=== PATIENT | male | born 1955 | race Hispanic/Latino ===

== ENCOUNTER → 2021-09-27 | Outpatient (CLI) | payer MEDICARE | END | disposition home or self-care (01) | LOC: RAH 13:30 | PROVIDERS: ATTEND Orthopaedic Surgery | DX: M17.11 Unilateral primary osteoarthritis, right knee (principal) | CPT/HCPCS: 73700 ==

== ENCOUNTER 2021-10-01 06:56 | Observation (INO) | payer MEDICARE ==
[2021-09-27 15:05] LABS: BASOPHILS % (AUTO) 0.7 % (0.0-5.0); EOSINOPHILS % (AUTO) 0.7 % (0.0-8.0); HEMATOCRIT 44.6 % (42-54); LYMPHOCYTES % (AUTO) 34.2 % (21.0-51.0); MEAN CORPUSCULAR HEMOGLOBIN 30.2 pg (27.0-33.0); MEAN CORPUSCULAR HGB CONC 33.4 g/dL (32.0-36.0); MEAN CORPUSCULAR VOLUME 90.5 fL (79-99); MONOCYTES % (AUTO) 9.3 % (3.0-13.0); NEUTROPHILS % (AUTO) 54.8 % (40.0-77.0); PLATELET COUNT (AUTO) 223 K/uL (130-400); RED BLOOD CELL COUNT(AUTO) 4.93 MIL/uL (4.50-6.20); RED CELL DISTRIBUTION WIDTH 13.7 % (11.0-15.5); WHITE BLOOD COUNT (AUTO) 9.6 K/uL (4.8-10.8)
[2021-09-27 15:11] LABS: POTASSIUM 3.6 mmol/L (3.5-5.1)
[2021-09-27 15:17] LABS: PROTHROMBIN TIME 10.9 SEC (9.6-11.6)
[2021-09-27 15:18] LABS: PARTIAL THROMBOPLASTIN TIME 28.3 SEC (26.3-35.5)
[2021-09-30 09:50] VITALS: BP 172/72
[2021-09-30] MEDS: CEFAZOLIN SODIUM 2 GM VIAL IV SCH (11:00)
[~2021-10-01] VITALS: Ht 177.8 cm; Wt 90.4 kg
[2021-10-01] VITALS (24 sets, daily range): BP systolic 127–160; BP diastolic 61–85
[~2021-10-01 06:56] MED LIST: AEC81 PO; AMLO-257 PO; CELE-84 PO; CLON0.5T4 PO; DULO30CA52 PO; GABA300C PO; HYDR25TA PO; METO-391 PO; SERT-439 PO; SIMV-46 PO; TAMS-1 PO; TRAM50TA4 PO; ZOLP5TAB8 PO
[2021-10-01] MEDS ORDERED: CEFAZOLIN SODIUM 1 GM VIAL ONE (07:13)
[2021-10-01] MEDS: LACTATED RINGERS 1000ML 1,000 ML IV SCH ×3 (07:25→13:46)
[2021-10-01] MEDS ORDERED: PROPOFOL 10 MG/ML 20ML VIAL IV ONE (07:49)
[2021-10-01] MEDS ORDERED: ONDANSETRON 4MG INJ ONE (07:49)
[2021-10-01] MEDS ORDERED: ROCURONIUM 10MG/1ML SYR 10 MG/ML ML ONE (07:50)
[2021-10-01] MEDS ORDERED: MIDAZOLAM HCL 1 MG/ML 2ML VIAL ONE (07:50)
[2021-10-01] MEDS ORDERED: FENTANYL CITRATE PF 50 MCG/1 ML 2ML VIAL ONE (07:52)
[2021-10-01] MEDS ORDERED: TRANEXAMIC ACID 1000MG/10ML ONE (08:52)
[2021-10-01] MEDS: CEFAZOLIN SODIUM 2 GM VIAL IV SCH ×2 (10:43→11:00)
[2021-10-01] MEDS ORDERED: EPHEDRINE SULFATE 50 MG/ML AMPULE ONE (10:54)
[2021-10-01] MEDS ORDERED: HYDROCODONE/ACETAMINOPHEN 10/325 MG TAB PO PRN (11:00)
[2021-10-01] MEDS ORDERED: MORPHINE 4 MG SYG IVP PRN (11:00)
[2021-10-01] MEDS: ACETAMINOPHEN 500 MG TABLET PO SCH ×2 (11:00→19:24)
[2021-10-01] MEDS: 0.9%NACL 1000ML 1,000 ML IV SCH ×2 (11:00→21:00)
[2021-10-01] MEDS ORDERED: ONDANSETRON 4MG INJ IVP PRN (11:00)
[2021-10-01] MEDS ORDERED: HYDROCODONE/ACETAMINOPHEN 5/325 MG TAB PO PRN (11:00)
[2021-10-01] MEDS ORDERED: DEXAMETHASONE SOD PHOSPHATE 10MG/ML 1ML VIAL ONE (11:00)
[2021-10-01] MEDS: TRAMADOL HCL 50 MG TABLET PO SCH ×3 (12:00→23:48)
[2021-10-01] MEDS: CEFAZOLIN SODIUM 1 GM VIAL IVP SCH ×2 (19:23→23:46)
[2021-10-01] MEDS: ASPIRIN 81 MG EC TAB PO SCH (20:30)
[2021-10-01] MEDS: FAMOTIDINE 20MG TAB PO SCH (20:30)
[2021-10-01] MEDS ORDERED: GABAPENTIN 300 MG CAPSULE PO SCH (21:00)
[2021-10-01] MEDS ORDERED: CLONAZEPAM 0.5 MG TABLET PO SCH (21:00)
[2021-10-01] MEDS ORDERED: ZOLPIDEM TARTRATE 5 MG TAB PO SCH (21:00)
[2021-10-02] VITALS: BP 143/72
[2021-10-02] MEDS: ACETAMINOPHEN 500 MG TABLET PO SCH ×2 (03:00→11:27)
[2021-10-02 04:00] VITALS: BP 117/56
[2021-10-02 04:33] LABS: HEMATOCRIT 39.2 % (42-54); MEAN CORPUSCULAR HEMOGLOBIN 30.6 pg (27.0-33.0); MEAN CORPUSCULAR HGB CONC 32.9 g/dL (32.0-36.0); MEAN CORPUSCULAR VOLUME 93.1 fL (79-99); RED BLOOD CELL COUNT(AUTO) 4.21 MIL/uL (4.50-6.20); RED CELL DISTRIBUTION WIDTH 13.8 % (11.0-15.5)
[2021-10-02 04:40] LABS: CREATININE 1.1 mg/dL (0.5-1.5); POTASSIUM 4.2 mmol/L (3.5-5.1)
[2021-10-02] MEDS: TRAMADOL HCL 50 MG TABLET PO SCH ×2 (05:24→12:46)
[2021-10-02] MEDS: 0.9%NACL 1000ML 1,000 ML IV SCH (06:35)
[2021-10-02 08:08] VITALS: BP 130/75
[2021-10-02] MEDS: LACTATED RINGERS 1000ML 1,000 ML IV SCH (08:26)
[2021-10-02] MEDS ORDERED: CELECOXIB 200 MG CAP PO SCH (09:00)
[2021-10-02] MEDS ORDERED: METOPROLOL SUCCINATE 50 MG TAB.SR.24H PO SCH (09:00)
[2021-10-02] MEDS ORDERED: POLYETHYLENE GLYCOL 3350 17 GM POWD.PACK PO SCH (09:00)
[2021-10-02] MEDS ORDERED: SERTRALINE HCL 50 MG TABLET PO SCH (09:00)
[2021-10-02] MEDS ORDERED: DULOXETINE HCL 30 MG CAP PO SCH (09:00)
[2021-10-02] MEDS ORDERED: AMLODIPINE 5 MG TAB PO SCH (09:00)
[2021-10-02] MEDS ORDERED: HYDROCHLOROTHIAZIDE 25 MG TABLET PO SCH (09:00)
[2021-10-02] MEDS ORDERED: TAMSULOSIN HCL 0.4 MG CAP.ER.24H PO SCH (09:00)
[2021-10-02] MEDS: ASPIRIN 81 MG EC TAB PO SCH (09:16)
[2021-10-02] MEDS: FAMOTIDINE 20MG TAB PO SCH (09:16)
[2021-10-02] MEDS: CEFAZOLIN SODIUM 2 GM VIAL IV SCH (09:17)
[2021-10-02 10:58] VITALS: BP 132/75
[2021-10-04] MEDS ORDERED: BISACODYL 10 MG SUPP.RECT RC PRN (11:00)
== END 2021-10-02 16:20 | disposition home or self-care (01) ==
LOC: DAH 06:56 → DAHIP 06:57 → DAH 06:57 → 3BH 14:16
PROVIDERS: ADMIT Orthopaedic Surgery; ATTEND Orthopaedic Surgery
DX: M17.11 Unilateral primary osteoarthritis, right knee (principal); Z20.822 Contact with and (suspected) exposure to COVID-19; M25.561 Pain in right knee; Z79.899 Other long term (current) drug therapy; Z98.890 Other specified postprocedural states
CPT/HCPCS: 27447; 36415 ×2; 64447; 64450; 76942; 80048 ×2; 85025; 85027; 85610; 85730; 87635; 87641; 93005; 96374; 96375; 96376; 97039 ×2; 97116 ×2; 97161; 97530 ×2; A4215; A4221; A4222; A4223; A4649 ×5; A4663; A6219; A6223; A6260; C1776; C9803; G0378 ×24; J0690 ×4; J1100; J2250; J2270; J2405; J2704; J3010; J3490 ×2; J7120 ×2